=== PATIENT | female | born 1955 | race African-American/Black ===

== ENCOUNTER → 2016-11-24 | Outpatient (CLI) | payer BC ==
[~2016-11-24] MED LIST: BLACK COHOSH; CALCIUM CARBON500 M1 PO; MVI; PRILOSEC 20MG20 MG PO; VITAMIN C500 MG PO
== END ==
LOC: MC.RAD 07:20
DX: Z12.31 Encounter for screening mammogram for malignant neoplasm of breast (principal)

== ENCOUNTER → 2018-01-31 | Outpatient (CLI) | payer BC | LOC: MC.RAD 12-03 08:40 | DX: Z12.31 Encounter for screening mammogram for malignant neoplasm of breast (principal); Z00.00 Encounter for general adult medical examination without abnormal findings ==

== ENCOUNTER → 2019-02-27 | Outpatient (CLI) | payer BC | LOC: MC.RAD 09:06 | DX: Z12.31 Encounter for screening mammogram for malignant neoplasm of breast (principal) ==

== ENCOUNTER → 2022-09-24 | Outpatient (CLI) | payer BC | LOC: MC.RAD 07-16 11:45 | DX: Z12.31 Encounter for screening mammogram for malignant neoplasm of breast (principal) ==